=== PATIENT | female | born 1930 | race Caucasian/White ===

== ENCOUNTER 2017-03-01 13:15 | Emergency (ER) | payer MEDICARE, BC ==
[2017-03-01] MEDS ORDERED: Sodium Chloride 0.9% 500 ML IV ONE (14:11)
--- NOTE | 2017-03-01 14:35 | ED PDOC ---
HPI: Abdomen Time Seen by Provider: 03/01/17 13:35 Chief Complaint (Nursing): Abdominal Pain History Per: Patient History/Exam Limitations: no limitations Onset/Duration Of Symptoms: Gradual (5 days), Worse Since (yesterday) Current Symptoms Are (Timing): Still Present Severity: Mild Location Of Pain/Discomfort: Diffuse Quality Of Discomfort: Dull, Aching, Cramping. denies: Burning, Pressure, Stabbing Associated Symptoms: Nausea, Loss Of Appetite. denies: Fever, Chills, Vomiting , Diarrhea, Back Pain, Chest Pain, Constipation, Urinary Symptoms Exacerbating Factors: None Alleviating Factors: None Additional History Per: Patient Additional Complaint(s): Pt states 5 days ago, she ate from a salad bar. Since then pt c/o intermittent abd soreness, nausea, fatigue and weakness. no trauma no urinary complaints Past Medical History Reviewed: Historical Data, Nursing Documentation, Vital Signs Vital Signs: Last Vital Signs Temp 98.0 F 03/01/17 13:32 Pulse 81 03/01/17 13:32 Resp 16 03/01/17 13:32 BP 181/97 H 03/01/17 13:32 Pulse Ox 99 03/01/17 16:39 - Medical History PMH: Anxiety - Family History Family History: States: Unknown Family Hx - Living Arrangements Living Arrangements: With Family - Social History Current smoker - smoking cessation education provided: No - Immunization History Hx Tetanus Toxoid Vaccination: No (gets sick) Hx Influenza Vaccination: No (gets sick) Hx Pneumococcal Vaccination: No (gets sick) - Home Medications Home Medications: Ambulatory Orders Medication Instructions Recorded Polyethylene Glycol 3350 [Miralax] 17 gm PO DAILY 5 Days 03/01/17 - Allergies Allergies/Adverse Reactions: Allergies Allergy/AdvReac Type Severity Reaction Status Date / Time ceftriaxone [From Rocephin] Allergy RASH Verified 03/01/17 13:32 Review of Systems ROS Statement: Except As Marked, All Systems Reviewed And Found Negative Constitutional: Negative for: Fever, Chills Cardiovascular: Negative for: Chest Pain, Palpitations Respiratory: Negative for: Cough, Shortness of Breath Gastrointestinal: Positive for: Nausea, Abdominal Pain. Negative for: Vomiting , Diarrhea, Melena, Hematochezia, Hematemesis Genitourinary Female: Negative for: Dysuria, Vaginal Discharge, Vaginal Bleeding Skin: Negative for: Rash Neurological: Negative for: Weakness Physical Exam - Reviewed Nursing Documentation Reviewed: Yes Vital Signs Reviewed: Yes - Physical Exam Head Exam: Positive for: ATRAUMATIC, NORMAL INSPECTION, NORMOCEPHALIC Eye Exam: Positive for: Normal appearance, EOMI, PERRL Neck: Positive for: Normal, Painless ROM, Supple Cardiovascular/Chest: Positive for: Regular Rate, Rhythm, Chest Non Tender. Negative for: Edema, Gallop Respiratory: Positive for: Normal Breath Sounds. Negative for: Decreased Breath Sounds, Accessory Muscle Use, Crackles, Rales, Rhonchi, Stridor, Wheezing Gastrointestinal/Abdominal: Positive for: Normal Exam, Bowel Sounds, Soft. Negative for: Tenderness, Distended, Guarding Back: Positive for: Normal Inspection. Negative for: L CVA Tenderness, R CVA Tenderness Extremity: Positive for: Normal ROM. Negative for: Tenderness, Pedal Edema, Calf Tenderness Neurologic/Psych: Positive for: Alert, hat finisher II-XII, Oriented, Mood/Affect (calm) , Gait (steady). Negative for: Motor/Sensory Deficits, Facial Droop - Laboratory Results Result Diagrams: 03/01/17 14:30 03/01/17 14:17 - ECG O2 Sat by Pulse Oximetry: 99 Pulse Ox Interpretation: Normal - Progress ED Course And Treament: PROCEDURE: CT Abdomen and Pelvis without intravenous contrast HISTORY: Abdominal pain r/o sbo COMPARISON: None. TECHNIQUE: CT scan of the abdomen and pelvis was performed without administration of intravenous contrast. Oral contrast was not administered. Coronal and sagittal reformatted images were obtained. Radiation dose: Total exam DLP = 449.26 mGy-cm. This CT exam was performed using one or more of the following dose reduction techniques: Automated exposure control, adjustment of the mA and/or kV according to patient size, and/or use of iterative reconstruction technique. FINDINGS: LOWER THORAX: There is subsegmental atelectasis in the lung bases there are tiny nodular densities in the medial segment of the right middle lobe. There is linear atelectasis/ scarring in the lingula. . LIVER: The liver is normal in size. No gross lesion or ductal dilatation. GALLBLADDER AND BILE DUCTS: There are no calcified gallstones. PANCREAS: The pancreas is normal in size. No gross lesion or ductal dilatation. SPLEEN: Normal in size. . ADRENALS: Both adrenal glands are normal in size without discrete nodule. KIDNEYS AND URETERS: Both kidneys are normal in size. There is no nephrolithiasis or obstructive uropathy. There is mild fullness in both collecting system and distension of extrarenal pelves likely related to an over distended urinary bladder. VASCULATURE: There is focal ectasia of the infrarenal aorta. There are early atherosclerotic aortoiliac calcifications. BOWEL: There is mild dilatation of the proximal small bowel loops and diffuse fecalization of small bowel contents. The mid and distal small bowel loops are normal in caliber. There is large amount of stool in the colon. There is sigmoid diverticulosis without CT evidence for acute diverticulitis. APPENDIX: No inflammatory changes in the right lower quadrant. PERITONEUM: No free fluid. No free air. LYMPH NODES: Prominent mesenteric lymph nodes are likely reactive in etiology. No enlarged lymph nodes. BLADDER: Over distended however normal in appearance. REPRODUCTIVE: The uterus is surgically absent. BONES: No acute fracture. Diffuse bone demineralization and advanced multilevel degenerative disc disease. OTHER FINDINGS: None. IMPRESSION: 1. Mild dilatation of the proximal small bowel loops and diffuse fecalization of small bowel contents consistent with chronic stasis. No evidence of high- grade bowel obstruction. Constipation. 2. Sigmoid diverticulosis without CT evidence for acute diverticulitis. advise close f/u with pmd. advise miralax po. all of pt's questions were answered and pt agree's with plan. Re-evaluation Time: 16:00 Condition: Improved Disposition - Clinical Impression Clinical Impression: Constipation - Patient ED Disposition Is Patient to be Admitted: No Counseled Patient/Family Regarding: Studies Performed, Diagnosis, Need For Followup, Rx Given - Disposition Referrals: Wyatt Guerrier MD [Primary Care Provider] - Disposition: Routine/Home Disposition Time: 16:00 Condition: GOOD Prescriptions: Polyethylene Glycol 3350 [Miralax] 17 gm PO DAILY 5 Days Instructions: Constipation (ED) Forms: [employer] (Armenian)
[2017-03-01 14:54] LABS: ALB/GLOB RATIO 1.4 (1.0-2.1); ALKALINE PHOSPHATASE 82 U/L (38-126); ALT/SGPT 31 U/L (9-52); AMYLASE 118 U/L (30-110); AST/SGOT 26 U/L (14-36); BILIRUBIN,TOTAL 0.7 mg/dl (0.2-1.3); BLOOD UREA NITROGEN 19 mg/dl (7-17); CALCIUM 9.8 mg/dL (8.4-10.2); CARBON DIOXIDE 24 mmol/L (22-30); CHLORIDE 103 mmol/L (98-107); GFR AFRICAN-AMERICAN > 60; GLUCOSE,RANDOM 116 mg/dL (65-105); LIPASE 118 U/L (23-300); POTASSIUM 4.1 MMOL/L (3.6-5.0); SODIUM 139 mmol/l (132-148)
[2017-03-01 14:54] LABS: BASO % 0.8 % (0.0-2.0); EOS # 0.1 K/uL (0.0-0.7); EOS % 1.9 % (0.0-4.0); HEMATOCRIT 45.2 % (34.0-47.0); LYMPH # 1.1 K/uL (1.0-4.3); LYMPH % 19.6 % (20.0-40.0); MEAN CELL VOLUME 95.2 fl (81.0-99.0); MEAN CORPUSCULAR HEMOGLOBIN 31.9 pg (27.0-31.0); MEAN CORPUSCULAR HGB CONC 33.5 g/dL (33.0-37.0); MEAN PLATELET VOLUME 8.1 fl (7.2-11.7); MONO # 0.7 K/uL (0.0-0.8); MONO % 12.6 % (0.0-10.0); NEUT # 3.6 K/uL (1.8-7.0); NEUT % 65.1 % (50.0-75.0); NRBC % 0.2 % (0.0-0.0); RED CELL DISTRIBUTION WIDTH 13.6 % (11.5-14.5); WHITE BLOOD COUNT 5.5 K/uL (4.8-10.8)
--- NOTE | 2017-03-01 15:54 | CT ---
PROCEDURE: CT Abdomen and Pelvis without intravenous contrast HISTORY: Abdominal pain r/o sbo COMPARISON: None. TECHNIQUE: CT scan of the abdomen and pelvis was performed without administration of intravenous contrast. Oral contrast was not administered. Coronal and sagittal reformatted images were obtained. Radiation dose: Total exam DLP = 449.26 mGy-cm. This CT exam was performed using one or more of the following dose reduction techniques: Automated exposure control, adjustment of the mA and/or kV according to patient size, and/or use of iterative reconstruction technique. FINDINGS: LOWER THORAX: There is subsegmental atelectasis in the lung bases there are tiny nodular densities in the medial segment of the right middle lobe. There is linear atelectasis/ scarring in the lingula. . LIVER: The liver is normal in size. No gross lesion or ductal dilatation. GALLBLADDER AND BILE DUCTS: There are no calcified gallstones. PANCREAS: The pancreas is normal in size. No gross lesion or ductal dilatation. SPLEEN: Normal in size. . ADRENALS: Both adrenal glands are normal in size without discrete nodule. KIDNEYS AND URETERS: Both kidneys are normal in size. There is no nephrolithiasis or obstructive uropathy. There is mild fullness in both collecting system and distension of extrarenal pelves likely related to an over distended urinary bladder. VASCULATURE: There is focal ectasia of the infrarenal aorta. There are early atherosclerotic aortoiliac calcifications. BOWEL: There is mild dilatation of the proximal small bowel loops and diffuse fecalization of small bowel contents. The mid and distal small bowel loops are normal in caliber. There is large amount of stool in the colon. There is sigmoid diverticulosis without CT evidence for acute diverticulitis. APPENDIX: No inflammatory changes in the right lower quadrant. PERITONEUM: No free fluid. No free air. LYMPH NODES: Prominent mesenteric lymph nodes are likely reactive in etiology. No enlarged lymph nodes. BLADDER: Over distended however normal in appearance. REPRODUCTIVE: The uterus is surgically absent. BONES: No acute fracture. Diffuse bone demineralization and advanced multilevel degenerative disc disease. OTHER FINDINGS: None. IMPRESSION: 1. Mild dilatation of the proximal small bowel loops and diffuse fecalization of small bowel contents consistent with chronic stasis. No evidence of high-grade bowel obstruction. Constipation. 2. Sigmoid diverticulosis without CT evidence for acute diverticulitis.
[2017-03-01 16:46] LABS: RBC URINE 1 /hpf (0-3); URINE BILIRUBIN NEGATIVE (NEGATIVE); URINE BLOOD NEGATIVE (NEGATIVE); URINE COLOR COLORLESS (YELLOW); URINE GLUCOSE (UA) NEG (Normal); URINE KETONE NEGATIVE (NEGATIVE); URINE LEUKOCYTE ESTERASE NEG Leu/uL (Negative); URINE PROTEIN NEGATIVE (NEGATIVE); URINE UROBILINOGEN 0.2-1.0 mg/dL (0.2-1.0); WBC URINE < 1 /hpf (0-5)
[2017-03-01 17:18] VITALS: BP 121/65; PULSE 82; RESP 14; TEMP 98.2; O2SAT 98
--- NOTE | 2017-03-04 18:23 | CARD ---
APPROVED REPORT EKG Measurement Heart [id number] NH [id number] <Conclusion> Sinus rhythm with short NH Possible Left atrial enlargement ST & Marked T wave abnormality, consider anterolateral ischemia Abnormal ECG
== END 2017-03-01 17:20 | disposition home or self-care (01) ==
LOC: H.ER 13:15
DX: K59.00 Constipation, unspecified (principal); K57.30 Diverticulosis of large intestine without perforation or abscess without bleeding; F41.9 Anxiety disorder, unspecified; R53.83 Other fatigue
CPT/HCPCS: 74176; 80053; 81003; 82150; 83690; 84484; 85025; 93005; 96361; 96374; 99283; J2405; J7040

== ENCOUNTER 2018-10-22 11:14 | Emergency (ER) | payer MEDICARE, BC ==
--- NOTE | 2018-10-22 11:35 | ED PDOC ---
HPI: General Adult Time Seen by Provider: 10/22/18 11:25 Chief Complaint (Nursing): Weakness/Neurological Deficit Chief Complaint (Provider): Weakness/Neurological Deficit History Per: Patient History/Exam Limitations: no limitations Onset/Duration Of Symptoms: Days (x4) Current Symptoms Are (Timing): Still Present Additional Complaint(s): Patient is an 88 y/o female with a PMHx of trigeminal neuralgia and anxiety who presents to the ED for evaluation of worsening pain to the right-side of her face, associated with her trigeminal neuralgia, for the past four days. Patient reports the pain is focused around her cheek and mouth. Furthermore, patient claims she has been experiencing a decrease in appetite, secondary to the pain, and generalized weakness. Of note, patient states she was on Dilantin in the past but is now taking Ultram with minimal relief. PCP: Dr. Ildefonso Horvath Naurologist: Dr. Marquez Past Medical History Reviewed: Historical Data, Nursing Documentation, Vital Signs Vital Signs: Last Vital Signs Temp 98 F 10/22/18 11:22 Pulse 89 10/22/18 11:22 Resp 20 10/22/18 11:22 BP 158/86 H 10/22/18 11:22 Pulse Ox 98 10/22/18 11:22 - Medical History PMH: Anxiety Other PMH: trigeminal neuralgia - Surgical History Surgical History: No Surg Hx - Family History Family History: States: Unknown Family Hx - Immunization History Hx Tetanus Toxoid Vaccination: No (gets sick) Hx Influenza Vaccination: No (gets sick) Hx Pneumococcal Vaccination: No (gets sick) - Home Medications Home Medications: Ambulatory Orders Medication Instructions Recorded Polyethylene Glycol 3350 [Miralax] 17 gm PO DAILY 5 Days ml 03/01/17 Sulfamethoxazole/Trimethoprim 1 tab PO BID #6 tab 10/22/18 [Bactrim DS 800 mg-160 mg] carBAMazepine [TEGretol] 100 mg PO BID #1 bottle 10/22/18 - Allergies Allergies/Adverse Reactions: Allergies Allergy/AdvReac Type Severity Reaction Status Date / Time ceftriaxone [From Rocephin] Allergy RASH Verified 03/01/17 13:32 Review of Systems ROS Statement: Except As Marked, All Systems Reviewed And Found Negative Constitutional: Positive for: Weakness (generalized), Other (right-sided facial pain focused around cheek and mouth; decreased appetite) Genitourinary Female: Positive for: Frequency Physical Exam - Reviewed Nursing Documentation Reviewed: Yes Vital Signs Reviewed: Yes - Physical Exam Appears: Positive for: In Acute Distress (painful) Head Exam: Positive for: ATRAUMATIC, NORMAL INSPECTION, NORMOCEPHALIC Skin: Positive for: Normal Color, Warm, Dry Eye Exam: Positive for: EOMI, Normal appearance, PERRL ENT: Positive for: Normal ENT Inspection (gingiva unremarkable), Other (TTP R maxillary area, no erythema, no edema, no induration, no lesions) Neck: Positive for: Normal, Painless ROM, Supple Cardiovascular/Chest: Positive for: Regular Rate, Rhythm. Negative for: Murmur Respiratory: Positive for: Normal Breath Sounds. Negative for: Respiratory Distress Neurological/Psych: Positive for: Awake, Alert, Oriented (x3) - Laboratory Results Result Diagrams: 10/22/18 11:55 10/22/18 11:55 - ECG O2 Sat by Pulse Oximetry: 98 (RA) Pulse Ox Interpretation: Normal Medical Decision Making Medical Decision Making: Time: 1138 Impression: Facial pain Plan: CMP CBC Morphine 2 mg IV IV Fluids 12:[address] Marquez, recommends Tegretol 100 mg bid-tid, follow-up in office on Tuesday (10/24/18) @ 2:45 PM. Scribe Attestation: Documented by Dennis Hernandez, acting as a scribe Willow Bonilla MD. Provider Scribe Attestation: All medical record entries made by the Scribe were at my direction and personally dictated by me. I have reviewed the chart and agree that the record accurately reflects my personal performance of the history, physical exam, m edical decision making, and the department course for this patient. I have also personally directed, reviewed, and agree with the discharge instructions and disposition. Disposition - Clinical Impression Clinical Impression: Trigeminal neuralgia of right side of face, UTI (urinary tract infection) - Disposition Referrals: Waldo Marquez MD [Staff Provider] - Ildefonso Horvath MD [Family Provider] - Disposition: Routine/Home Disposition Time: 14:30 Condition: IMPROVED Additional Instructions: FOLLOW-UP WITH DR. MARQUEZ ON TUESDAY (10/24/18) @ 2:45 PM. Prescriptions: carBAMazepine [TEGretol] 100 mg PO BID #1 bottle Sulfamethoxazole/Trimethoprim [Bactrim DS 800 mg-160 mg] 1 tab PO BID #6 tab Instructions: Urinary Tract Infections in Adults, Trigeminal Neuralgia Forms: [employer] (Tuvaluan)
[2018-10-22] MEDS ORDERED: Sodium Chloride 0.9% 1,000 ML IV STA (11:38)
[2018-10-22 11:59] LABS: BASO % 0.5 % (0.0-2.0); EOS # 0.1 K/uL (0.0-0.7); EOS % 1.1 % (0.0-4.0); HEMOGLOBIN 15.5 g/dL (12.0-16.0); LYMPH # 0.9 K/uL (1.0-4.3); LYMPH % 12.1 % (20.0-40.0); MEAN CELL VOLUME 95.2 fl (81.0-99.0); MEAN CORPUSCULAR HEMOGLOBIN 32.4 pg (27.0-31.0); MEAN CORPUSCULAR HGB CONC 34.1 g/dL (33.0-37.0); MEAN PLATELET VOLUME 7.7 fl (7.2-11.7); MONO # 0.7 K/uL (0.0-0.8); MONO % 9.6 % (0.0-10.0); NEUT # 5.6 K/uL (1.8-7.0); NEUT % 76.7 % (50.0-75.0); NRBC % 0.1 % (0.0-0.0); RBC 4.78 Mil/uL (3.80-5.20); RED CELL DISTRIBUTION WIDTH 13.7 % (11.5-14.5); WHITE BLOOD COUNT 7.3 K/uL (4.8-10.8)
[2018-10-22 12:17] LABS: ALB/GLOB RATIO 1.1 (1.0-2.1); ALBUMIN 4.5 g/dL (3.5-5.0); BLOOD UREA NITROGEN 25 mg/dl (7-17); CALCIUM 9.5 mg/dL (8.4-10.2); GFR NON-AFRICAN AMERICAN 52
[2018-10-22 12:25] LABS: ALT/SGPT 19 U/L (9-52); AST/SGOT 31 U/L (14-36)
[2018-10-22] MEDS ORDERED: carBAMazepine Chew Tab 100 MG Chew Tab PO STA (12:56)
[2018-10-22] MEDS ORDERED: carBAMazepine Chew Tab 100 MG Chew Tab ONE (13:00)
[2018-10-22 14:27] LABS: URINE BILIRUBIN NEGATIVE (NEGATIVE); URINE BLOOD MODERATE (NEGATIVE); URINE CLARITY CLEAR (Clear); URINE COLOR STRAW (YELLOW); URINE GLUCOSE (UA) NEG (NEGATIVE); URINE LEUKOCYTE ESTERASE LARGE Leu/uL (Negative); URINE PROTEIN 30 mg/dL (NEGATIVE); URINE UROBILINOGEN 0.2-1.0 mg/dL (0.2-1.0)
[2018-10-22] MEDS ORDERED: Tmp-Smz 800 mg-160 mg DS Tab PO STA (14:28)
[2018-10-22 14:29] LABS: RENAL EPITHELIAL 3 /hpf (0-3); SQUAMOUS EPITHIAL 3 /hpf (0-5)
[2018-10-22 14:30] LABS: URINE AMORPHOUS SEDIMENT FEW /ul (<OCC); URINE BACTERIA MOD (<OCC)
[2018-10-22] MEDS ORDERED: Tmp-Smz 800 mg-160 mg DS Tab ONE (14:47)
[2018-10-22 14:53] VITALS: BP 158/89; PULSE 86; RESP 16; TEMP 98.1
--- NOTE | 2018-10-25 11:07 | ED PDOC ---
ED Additional Note - Date & Time of Evaluation Date of Evaluation: 10/25/18 Time of Evaluation: 10:55 - Physician Additional Note Physician Additional Note: 11:16am: Patient called back and states that she was sent home with Bactrim for UTI and has been taking it but has been making her nauseous and she does not want to take it any longer. Patient advised that she could build resistance if she does not complete course of this antibiotic but patient prefers to change antibiotic. She was advised that prescription for Macrobid already called in to her pharmacy so to stop Bactrim and take Macrobid instead. Urine culture + for E. coli > 100K. Patient not sent home on antibiotics from ER. Spoke with patient who continues to have urinary frequency, urgency and weakness. Prescription for Nitrofurantoin 100mg PO BID X 5 days called in to [facility] . Patient states that she gets nauseous with most meds so Zofran 4mg PO BID PRN #4 called in to pharmacy as well. Patient advised to return to ER if symptoms worsen.
[2018-10-30 07:57] VITALS: O2SAT 98
== END 2018-10-22 14:59 | disposition home or self-care (01) ==
LOC: H.ER 11:14
DX: G50.0 Trigeminal neuralgia (principal); N39.0 Urinary tract infection, site not specified; Z88.1 Allergy status to other antibiotic agents; Z79.899 Other long term (current) drug therapy; F41.9 Anxiety disorder, unspecified
CPT/HCPCS: 80053; 81003; 85025; 87086; 87181; 96374; 99285; J2270; J7030